=== PATIENT | female | born 2000 | race Caucasian/White ===

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

== ENCOUNTER 2023-01-04 07:32 | Emergency (ER) | payer OTHER ==
[~2023-01-04] VITALS: Ht 157.5 cm; Wt 80.3 kg
[~2023-01-04 07:32] MED LIST: IBUP-2213 PO; [UNRECOGNIZED DRUG - CODE] OT
[2023-01-04 07:48] VITALS: BP 121/63; PULSE 89; RESP 16; TEMP 98.1; O2SAT 99
[2023-01-05] MEDS ORDERED: PENI500T20 PO (11:54)
== END 2023-01-04 09:57 | disposition home or self-care (01) ==
LOC: MED 07:32
DX: J02.9 Acute pharyngitis, unspecified (principal); J45.909 Unspecified asthma, uncomplicated; Z79.899 Other long term (current) drug therapy; Z79.1 Long term (current) use of non-steroidal anti-inflammatories (NSAID)
CPT/HCPCS: 87081; 99283

== ENCOUNTER 2023-09-30 09:24 | Emergency (ER) | payer OTHER ==
[~2023-09-30] VITALS: Ht 157.5 cm; Wt 77.1 kg
[~2023-09-30 09:24] MED LIST changes: +PENI500T20 PO
[2023-09-30 09:27] VITALS: BP 128/69; PULSE 91; RESP 18; TEMP 98.2; O2SAT 98
[2023-09-30] MEDS: diphenhydrAMINE 50 MG CAP PO ONE (10:35)
[2023-09-30] MEDS ORDERED: HYD2.5O TP (10:38)
[2023-09-30] MEDS ORDERED: DIPH25TA53 PO (10:38)
== END 2023-09-30 11:07 | disposition home or self-care (01) ==
LOC: MED 09:24
DX: L25.9 Unspecified contact dermatitis, unspecified cause (principal); J45.909 Unspecified asthma, uncomplicated; Z79.899 Other long term (current) drug therapy
CPT/HCPCS: 81025; 99282; Q0163